=== PATIENT | male | born 1990 | race Caucasian/White ===

== ENCOUNTER 2017-07-16 14:51 | Emergency (ER) | payer OTHER ==
[2017-07-16] MEDS ORDERED: HYDROcod/ACETAM 5/325 MG TABLET PO STA (15:00)
[2017-07-16 15:03] VITALS: BP 124/83
--- NOTE | 2017-07-16 15:03 | ED Physician Documentation ---
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 a heavy bucket across the ground and he developed severe pain across the top of the right shoulder with inability to move it.) Review of Systems Constitutional: denies: Fever, Chills Nose: denies: Rhinorrhea / runny nose, Congestion Respiratory: denies: Dyspnea, Cough PD PAST MEDICAL HISTORY - Present Medications Home Medications: Ambulatory Orders Medication Instructions Recorded Confirmed HYDROcod/ACETAM 5/325 [Dola 5/325] 1 - 2 ea PO Q6H PRN #15 tablet 07/16/17 - Allergies Allergies/Adverse Reactions: Allergies Allergy/AdvReac Type Severity Reaction Status Date / Time Penicillins Allergy Unknown Verified 07/16/17 15:03 Sulfa (Sulfonamide Allergy Unknown Verified 07/16/17 15:03 Antibiotics) PD ED PE NORMAL - Vitals Vital signs reviewed: Yes - General General: Alert and oriented X 3, No acute distress - Extremities Extremities: Other (He is holding His shoulder at his side, he is mild tenderness over the glenohumeral joints and AC joint without deformity. He has severe pain with Flexion and abduction.) - Neuro Neuro: Alert and oriented X 3, Normal speech - Psych Psych: Normal mood, Normal affect Results - Vitals Vitals: Vital Signs - 24 hr 07/16/17 15:00 Temperature 37.0 C Heart Rate 61 Respiratory 18 Rate Blood Pressure 124/83 H O2 Saturation 98 Oxygen O2 Source Room air - Rads (name of study) 3v R shoulder Radiology: EMP read contemporaneously (NAD) Departure - Departure Disposition: Home, Self Care Clinical Impression: Unspecified rotator cuff tear or rupture of right shoulder, not specified as traumatic Qualifiers: Rotator cuff tear extent: unspecified tear extent Qualified Code(s): M75.101 - Unspecified rotator cuff tear or rupture of right shoulder, not specified as traumatic Condition: Good Record reviewed to determine appropriate education?: Yes Instructions: ED Torn Rotator Cuff Prescriptions: HYDROcod/ACETAM 5/325 [Dola 5/325] 1 - 2 ea PO Q6H PRN #15 tablet PRN Reason: Pain Comments: Make an appointment to follow-up with your orthopedist in [place], keep the CD of your x-ray with you for that appointment. As you are able start doing gentle range of motion exercises similar to what she did postoperatively a few years ago to avoid a frozen shoulder. You may return to work, but you are not to work with the right arm until cleared by orthopedist. Do not drink or drive while taking narcotic pain medication. Note that many narcotic pain relievers also contain Tylenol/acetaminophen. Please ensure that your total dose of acetaminophen from all sources does not exceed 3 g (3000 mg) per day. You may get constipated while on this medication. Take a stool softener such as Colace twice a day while you are on it. Also add an [id number] laxative such as senna or MiraLAX on any day that you do not have a bowel movement. If you received a narcotic pain medication or sedative while in the emergency department, do not drive for the next 24 hours. Your blood pressure was elevated today on check into the emergency department. This does not mean that you have hypertension, it is a common phenomenon to come to the emergency department and have elevated blood pressure. I recommend that she see her primary care physician within the week to have it rechecked when you are feeling better. Forms: Activity restrictions Discharge Date/Time: 07/16/17 15:54
[2017-07-16] MEDS ORDERED: HYDROcod/ACETAM 5/325 MG TABLET ONE (15:20)
--- NOTE | 2017-07-16 15:38 | XRAY Preliminary Report ---
Exam: XR Shoulder 3 View RT IMPRESSION: No acute disease. [facility] SITE ID: [id number]
--- NOTE | 2017-07-16 15:40 | XRAY Report ---
EXAM: RIGHT SHOULDER RADIOGRAPHY EXAM DATE: 07/16/2017 03:22 PM. CLINICAL HISTORY: Trauma, pain. COMPARISON: None. TECHNIQUE: 3 views. FINDINGS: Bones: Normal. No fracture or bone lesion. Joints: Mild degenerative changes. Anatomic alignment. Soft tissues: Unremarkable. Clear visualized lung. IMPRESSION: No acute disease. [facility] Referring Provider Line: [phone] SITE ID: [id number]
== END 2017-07-16 15:54 | disposition home or self-care (01) ==
LOC: ED 14:51
DX: M75.101 Unspecified rotator cuff tear or rupture of right shoulder, not specified as traumatic (principal); R03.0 Elevated blood-pressure reading, without diagnosis of hypertension
CPT/HCPCS: 1040M; 73030; 99283; A9270

== ENCOUNTER 2019-01-25 06:13 | Emergency (ER) | payer SELFPAY ==
--- NOTE | 2019-01-25 07:01 | ED Physician Documentation ---
PD HPI URI - Stated complaint Stated Complaint: FLU LIKE SX - Chief complaint Chief Complaint: General - History obtained from History obtained from: Patient - History of Present Illness Timing - onset: How many weeks ago (1) Timing duration: Weeks (1) Timing details: Still present (he had flu like symtpoms for a week and then was feeling better the past 2 days, and now symptoms again, nausea and diarrhea, and has had increased cough with sputum production now.) Associated symptoms: Productive cough, NVD. No: Fever Contributing factors: No: Sick contact, Travel, COPD / asthma Similar symptoms before: Has not had sx before Recently seen: Not recently seen Review of Systems Constitutional: reports: Myalgias, Fatigue. denies: Fever, Chills Nose: denies: Rhinorrhea / runny nose, Congestion Throat: denies: Sore throat Respiratory: reports: Cough GI: reports: Nausea, Vomiting, Diarrhea Skin: denies: Rash, Lesions Neurologic: reports: Generalized weakness. denies: Near syncope PD PAST MEDICAL HISTORY - Past Medical History Past Medical History: No - Past Surgical History Past Surgical History: Yes - Present Medications Home Medications: Ambulatory Orders Medication Instructions Recorded Confirmed Diphenoxylate/Atropine [Lomotil] 1 each PO QID PRN #12 tablet 01/25/19 Doxycycline Hyclate 100 mg PO BID #14 capsule 01/25/19 Ondansetron HCl [Zofran] 4 mg PO Q6H PRN #15 tablet 01/25/19 - Allergies Allergies/Adverse Reactions: Allergies Allergy/AdvReac Type Severity Reaction Status Date / Time Penicillins Allergy Unknown Verified 07/16/17 15:03 Sulfa (Sulfonamide Allergy Unknown Verified 07/16/17 15:03 Antibiotics) - Social History Does the pt smoke?: No Smoking Status: Never smoker Does the pt drink ETOH?: No Does the pt have substance abuse?: No - Immunizations Immunizations are current?: No Immunizations: TDAP >10years/unknown - POLST Patient has POLST: No PD ED PE NORMAL - Vitals Vital signs reviewed: Yes - General General: Alert and oriented X 3, No acute distress, Well developed/nourished - HEENT HEENT: Ears normal, Moist mucous membranes (he feels he is keeping up with diarrhea and not feeling lightheaded. ), Pharynx benign - Neck Neck: Supple, no meningeal sign, No adenopathy - Cardiac Cardiac: RRR, No murmur - Respiratory Respiratory: Clear bilaterally - Abdomen Abdomen: Soft, Non tender - Derm Derm: Normal color, Warm and dry - Extremities Extremities: No tenderness to palpate, Normal ROM s pain, No edema - Neuro Neuro: Alert and oriented X 3, No motor deficit, Normal speech Results - Vitals Vitals: Oxygen O2 Source Room air - Labs Labs: Laboratory Tests 01/25/19 06:25 Influenza A (Rapid) Negative Influenza B (Rapid) Negative PD MEDICAL DECISION MAKING - ED course Complexity details: considered differential (seems flu-like and was getting better, now same symptoms again. the cough part seems new and increased symptoms, sounding secondary. ), d/w patient Departure - Departure Disposition: 01 Home, Self Care Clinical Impression: Nausea vomiting and diarrhea, Flu-like symptoms, Bronchitis Condition: Stable Record reviewed to determine appropriate education?: Yes Instructions: ED Flu Prescriptions: Diphenoxylate/Atropine [Lomotil] 1 each PO QID PRN #12 tablet PRN Reason: Diarrhea Doxycycline Hyclate 100 mg PO BID #14 capsule Ondansetron HCl [Zofran] 4 mg PO Q6H PRN #15 tablet PRN Reason: Nausea / Vomiting Comments: Your symptoms do sound flulike. There can be these short resurgence is of symptoms. I hope you will be feeling better again after a couple more days. Use ondansetron if needed for nausea and Lomotil for diarrhea. Drink lots of fluids. Tylenol as you have for fever and pains. If your cough persists separately with sputum etc., then you could add the antibiotic. If everything resolves over the next couple of days then no other treatment needed per se. Forms: Activity restrictions Discharge Date/Time: 01/25/19 07:52
[2019-01-25] MEDS ORDERED: DIPHENOX/ATROPINE 2.5/0.025 MG TABLET PO STA (07:25)
[2019-01-25] MEDS ORDERED: ONDANSETRON ODT 4 MG TABLET TL STA (07:25)
[2019-01-25] MEDS ORDERED: DEXAMETHASONE 10 MG/ML VIAL PO STA (07:25)
[2019-01-25 07:53] VITALS: BP 134/76
== END 2019-01-25 07:52 | disposition home or self-care (01) ==
LOC: ED 06:13
DX: J40 Bronchitis, not specified as acute or chronic (principal); R11.2 Nausea with vomiting, unspecified; R19.7 Diarrhea, unspecified
CPT/HCPCS: 87275; 87276; 99283; A9270; Q0162

== ENCOUNTER 2020-12-13 18:47 | Outpatient (CLI) | payer BC | END 2020-12-13 18:48 | disposition home or self-care (01) | LOC: COV 18:47 | PROVIDERS: ATTEND Family Medicine | DX: Z20.822 Contact with and (suspected) exposure to COVID-19 (principal) ==

== ENCOUNTER 2021-08-20 14:27 | Outpatient (CLI) | payer BC | END 2021-08-20 14:28 | disposition home or self-care (01) | LOC: COV 14:27 | PROVIDERS: ATTEND Family Medicine | DX: R05 Cough (principal); R53.83 Other fatigue; R68.83 Chills (without fever); R07.0 Pain in throat; R43.8 Other disturbances of smell and taste; R09.81 Nasal congestion; J34.89 Other specified disorders of nose and nasal sinuses; Z20.822 Contact with and (suspected) exposure to COVID-19 ==